=== PATIENT | female | born 1985 | race African-American/Black ===

== ENCOUNTER 2022-09-16 17:12 | Emergency (ER) | payer MEDICAID ==
[~2022-09-16] VITALS: Ht 157.5 cm; Wt 64.9 kg
[2022-09-16 17:35] VITALS: BP 116/70
[2022-09-16] MEDS ORDERED: KETOROLAC 60MG/2ML VIAL IM ONE (19:45)
== END 2022-09-16 21:15 | disposition home or self-care (01) ==
LOC: ER 17:12
DX: S60.221A Contusion of right hand, initial encounter (principal); G89.11 Acute pain due to trauma; M54.2 Cervicalgia; M25.511 Pain in right shoulder; F12.90 Cannabis use, unspecified, uncomplicated; V49.9XXA Car occupant (driver) (passenger) injured in unspecified traffic accident, initial encounter; Y93.89 Activity, other specified; Y92.89 Other specified places as the place of occurrence of the external cause; Y99.8 Other external cause status
CPT/HCPCS: 73030; 73110; 73130; 81025; 99284; J1885; Z7610